=== PATIENT | male | born 1965 | race Two or more races ===

== ENCOUNTER 2022-06-23 07:21 | Emergency (ER) | payer MEDICAID, OTHER ==
[~2022-06-23] VITALS: Ht 185.4 cm; Wt 100.8 kg
[2022-06-23 08:00] LABS: Basophils # (auto) 0.1 10 ^3/uL (0-0.2); Basophils % (auto) 0.6 % (0.0-2.0); Eosinophils # (auto) 0.1 10 ^3/uL (0-0.8); Hematocrit 45.2 % (41.0-53.0); Lymphocytes # (auto) 1.1 10 ^3/uL (0.4-5.4); Lymphocytes % (auto) 9.2 % (10.0-50.0); Mean Corpuscular Hemoglobin 27.2 pg (28.0-32.0); Mean Corpuscular Hgb Conc. 33.1 g/dL (32.0-36.0); Mean Corpuscular Volume 82.2 fL (80.0-100.0); Monocytes # (auto) 0.6 10 ^3/uL (0-1.3); Monocytes % (auto) 4.9 % (0.0-12.0); Neutrophils # (auto) 10.2 10 ^3/uL (1.6-8.6); Neutrophils % (auto) 84.3 % (37.0-80.0); Nucleated Red Blood Cells % 0.1 %; Red Blood Cells 5.49 10^6/uL (4.5-5.90); Red Cell Distribution Width 13.9 % (11.8-14.3); White Blood Cell 12.1 10^3/uL (4.4-10.8)
[2022-06-23 08:16] LABS: Albumin 3.7 g/dL (3.4-5.0); Calcium 8.8 mg/dL (8.5-10.1); Potassium 3.5 mmol/L (3.5-5.1)
[2022-06-23 08:19] LABS: BUN/Creatinine Ratio 10.5; Total Protein 7.3 g/dL (6.4-8.2)
[2022-06-23 08:24] LABS: Urine Bacteria NONE SEEN /hpf (None Seen); Urine Blood Negative /uL (Negative); Urine Mucus FEW (None Seen); Urine Specific Gravity 1.024 (1.001-1.035); Urine WBC 1 /hpf (0 - 3)
[2022-06-23] MEDS ORDERED: SODIUM CHLORIDE 0.9% 1,000 ML IVB ONE (08:45)
[2022-06-23 09:06] LABS: Magnesium 1.8 mg/dL (1.6-2.6)
[2022-06-23 09:30] VITALS: BP 145/79
[2022-06-23] MEDS ORDERED: METR500T PO (15:56)
[2022-06-23] MEDS ORDERED: METR500T14 PO (16:11)
== END 2022-06-23 17:08 | disposition home or self-care (01) ==
LOC: ER 07:21
DX: K52.9 Noninfective gastroenteritis and colitis, unspecified (principal); E86.0 Dehydration; M19.90 Unspecified osteoarthritis, unspecified site; E11.9 Type 2 diabetes mellitus without complications; I10 Essential (primary) hypertension; Z90.49 Acquired absence of other specified parts of digestive tract
CPT/HCPCS: 36415; 71046; 74176; 80053; 81001; 83690; 83735; 84443; 84484; 85025; 93005; 96360; 99285; J7030

== ENCOUNTER 2023-04-10 11:23 | Inpatient (IN) | payer MEDICAID ==
[~2023-04-10] VITALS: Ht 185.4 cm; Wt 107.7 kg
[~2023-04-10 11:23] MED LIST: METR-344 PO
[2023-04-10 11:46] LABS: Basophils # (auto) 0.1 10 ^3/uL (0-0.2); Basophils % (auto) 0.7 % (0.0-2.0); Eosinophils # (auto) 0.1 10 ^3/uL (0-0.8); Eosinophils % (auto) 1.9 % (0.0-7.0); Hematocrit 44.3 % (41.0-53.0); Hemoglobin 14.8 g/dL (13.5-17.5); Lymphocytes # (auto) 1.3 10 ^3/uL (0.4-5.4); Lymphocytes % (auto) 15.6 % (10.0-50.0); Mean Corpuscular Hemoglobin 28.2 pg (28.0-32.0); Mean Corpuscular Hgb Conc. 33.4 g/dL (32.0-36.0); Mean Corpuscular Volume 84.4 fL (80.0-100.0); Monocytes # (auto) 0.5 10 ^3/uL (0-1.3); Monocytes % (auto) 5.9 % (0.0-12.0); Neutrophils # (auto) 6.1 10 ^3/uL (1.6-8.6); Neutrophils % (auto) 75.9 % (37.0-80.0); Nucleated Red Blood Cells % 0.2 %; Red Blood Cells 5.25 10^6/uL (4.5-5.90); Red Cell Distribution Width 14.7 % (11.8-14.3)
[2023-04-10 12:04] LABS: Albumin 4.3 g/dL (3.4-5.0); Calcium 9.4 mg/dL (8.5-10.1); Magnesium 2.4 mg/dL (1.6-2.6); Potassium 4.2 mmol/L (3.5-5.1)
[2023-04-10 12:08] LABS: BUN/Creatinine Ratio 13.8 (10.0-20.0); Bilirubin, Total 1.7 mg/dL (0.2-1.0)
[2023-04-10 12:10] LABS: Urine Bacteria NONE SEEN /hpf (None Seen); Urine Blood Negative /uL (Negative); Urine Clarity Clear (Clear); Urine Color Yellow (Yellow); Urine Mucus FEW (None Seen); Urine Protein, UAD 1+ (Negative); Urine Specific Gravity 1.027 (1.001-1.035); Urine Urobilinogen Normal (Negative); Urine WBC 1 /hpf (0 - 3); Urine pH 5.5 (5.0-8.0)
[2023-04-10] MEDS ORDERED: HYDROmorphone HCL 2 MG/ML VL/or syr IV PRN (14:45)
[2023-04-10] MEDS ORDERED: HYDROcodone-ACET 5/325MG TAB PO PRN (14:45)
[2023-04-10] MEDS ORDERED: MORPHINE SULFATE INJ 2 MG/ml SYRG IV PRN (14:45)
[2023-04-10] MEDS ORDERED: ONDANSETRON HCL 4 MG/2 ML VIAL IV PRN (14:45)
[2023-04-10] MEDS ORDERED: NITROGLYCERIN 0.4 MG SL TAB SL PRN (14:45)
[2023-04-10] MEDS ORDERED: ACETAMINOPHEN 325 MG TAB PO PRN (14:45)
[2023-04-10] MEDS ORDERED: DOCUSATE SOD 100 MG CAP PO PRN (14:45)
[2023-04-10] MEDS ORDERED: FAMOTIDINE 20 MG TAB PO ONE (14:45)
[2023-04-10 15:31] LABS: Cholesterol 156 mg/dL (< 200); HDL Cholesterol 68 mg/dL (40-59); LDL Cholesterol 79 mg/dL (< 100); Triglycerides 101 mg/dL (< 150)
[2023-04-10 21:30] VITALS: BP 148/80; PULSE 79; RESP 18; TEMP 97.6; O2SAT 96
[2023-04-10 22:00] VITALS: BP 148/80; PULSE 79; RESP 18; TEMP 97.6; O2SAT 96
[2023-04-10] MEDS: SODIUM CHLOR 0.9% PF (SALINE LOCK) 10ML VIAL/SYR IV SCH (22:00)
[2023-04-11 05:00] VITALS: BP 127/75; PULSE 76; RESP 18; TEMP 97.8; O2SAT 96
[2023-04-11] MEDS: SODIUM CHLOR 0.9% PF (SALINE LOCK) 10ML VIAL/SYR IV SCH ×3 (06:00→21:33)
[2023-04-11 08:00] VITALS: BP 128/75; PULSE 74; PULSE 79; RESP 21; TEMP 97.5; O2SAT 97
[2023-04-11] MEDS ORDERED: ATOR10TA52 PO (09:34)
[2023-04-11] MEDS ORDERED: GLIP10TA9 PO (09:34)
[2023-04-11] MEDS ORDERED: HYDR-4798 PO (09:34)
[2023-04-11] MEDS ORDERED: CITA10TA8 PO (09:34)
[2023-04-11] MEDS ORDERED: NAPR-957 PO (09:34)
[2023-04-11] MEDS ORDERED: ASPI-543 PO (09:34)
[2023-04-11] MEDS ORDERED: SEMA2INJ3 SC (09:34)
[2023-04-11] MEDS ORDERED: HYDR-4924 PO (09:34)
[2023-04-11] MEDS ORDERED: METO25TA93 PO (09:34)
[2023-04-11] MEDS ORDERED: METF-371 PO (09:34)
[2023-04-11] MEDS ORDERED: ENOXAPARIN SOD 40 MG/0.4 ML SYRINGE SC SCH (10:00)
[2023-04-11 12:00] VITALS: BP 132/78; PULSE 68; RESP 20; TEMP 97.5; O2SAT 97
[2023-04-11] MEDS ORDERED: METOPROLOL SUCCINATE XL 50 MG TAB PO ONE (12:45)
[2023-04-11] MEDS ORDERED: DEXTROSE (50%) 50ML SYRG IV PRN (12:45)
[2023-04-11] MEDS ORDERED: PANTOPRAZOLE 40 MG/10 ML VIAL INJ IV ONE (12:45)
[2023-04-11 14:46] LABS: Alcohol, Urine < 3.0 mg/dL (0-10); Amphetamine Screen, Urine NEGATIVE (NEGATIVE); Barbiturate Scree,Urine NEGATIVE (NEGATIVE); Benzodiazephine Screen, Urine NEGATIVE (NEGATIVE); Cannabinoid Screen, Urine NEGATIVE (NEGATIVE); Cocaine Screen, Urine NEGATIVE (NEGATIVE); Opiate Scree,Urine NEGATIVE (NEGATIVE); Phencyclidine Screen, Urine NEGATIVE (NEGATIVE)
[2023-04-11 16:00] VITALS: BP 129/82; PULSE 77; RESP 22; TEMP 97.9; O2SAT 97
[2023-04-11] MEDS: ACCU-CHEK COMFORT CURVE STRIP VI SCH ×2 (17:58→21:24)
[2023-04-11] MEDS: InsuLIN REG 1unit/0.01ml Soln (100units/ml) SC SCH ×2 (18:03→21:35)
[2023-04-11 20:00] VITALS: BP 129/82; PULSE 77; PULSE 82; RESP 20; TEMP 97.7; O2SAT 97
[2023-04-11 22:00] VITALS: BP 158/91; PULSE 74; RESP 20; TEMP 97.9; O2SAT 94
[2023-04-11] MEDS ORDERED: ATORVASTATIN 20 MG TAB PO SCH (22:00)
[2023-04-12 05:00] VITALS: BP 131/82; PULSE 67; RESP 20; TEMP 97.9; O2SAT 99
[2023-04-12] MEDS: SODIUM CHLOR 0.9% PF (SALINE LOCK) 10ML VIAL/SYR IV SCH ×2 (05:47→14:00)
[2023-04-12] MEDS: InsuLIN REG 1unit/0.01ml Soln (100units/ml) SC SCH ×2 (05:47→11:15)
[2023-04-12] MEDS: ACCU-CHEK COMFORT CURVE STRIP VI SCH ×2 (05:47→11:15)
[2023-04-12 08:00] VITALS: BP 157/77; PULSE 79; PULSE 85; RESP 21; TEMP 97.6; O2SAT 95
[2023-04-12] MEDS ORDERED: PANTOPRAZOLE 40 MG/10 ML VIAL INJ IV SCH (10:00)
[2023-04-12] MEDS ORDERED: CITALOPRAM HYDROBR 20 MG TAB PO SCH (10:00)
[2023-04-12] MEDS ORDERED: METOPROLOL SUCCINATE XL 50 MG TAB PO SCH (10:00)
[2023-04-12] MEDS ORDERED: PANT40TA2 PO (11:07)
[2023-04-12 12:00] VITALS: BP 129/78; PULSE 81; RESP 20; TEMP 97.6; O2SAT 95
[2023-04-12 14:01] VITALS: BP 129/78; PULSE 81; RESP 20; TEMP 97.6; O2SAT 95
== END 2023-04-12 15:16 | disposition home or self-care (01) | DRG 282 ==
LOC: ER 11:23 → TELE 14:44 → TELE-WESTW 21:04
PROVIDERS: ADMIT Internal Medicine; ATTEND Internal Medicine
DX: K85.90 Acute pancreatitis without necrosis or infection, unspecified (principal); E11.9 Type 2 diabetes mellitus without complications; K21.9 Gastro-esophageal reflux disease without esophagitis; E66.9 Obesity, unspecified; I10 Essential (primary) hypertension; J45.909 Unspecified asthma, uncomplicated; E78.5 Hyperlipidemia, unspecified; F41.9 Anxiety disorder, unspecified; Z79.82 Long term (current) use of aspirin; Z83.3 Family history of diabetes mellitus; Z90.49 Acquired absence of other specified parts of digestive tract; Z68.31 Body mass index [BMI] 31.0-31.9, adult
CPT/HCPCS: 36415; 71046; 74176; 76705; 80053; 80061; 80307; 81001; 82962; 83735; 84484; 85025; 93005; 93306; C9113; G0378; J1815